=== PATIENT | male | born 1950 | race Caucasian/White ===

== ENCOUNTER 2024-06-19 12:42 | Inpatient (IN) | payer MEDICARE, OTHER, SELFPAY ==
[2024-06-19] VITALS (22 sets, daily range): BP systolic 99–134; BP diastolic 57–79; PULSE 61–90; RESP 15–28; TEMP 36.6–37; O2SAT 95–98; BMI 26.6
--- NOTE | 2024-06-19 13:02 | EKG_ITS ---
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
--- NOTE | 2024-06-19 13:02 | DI.RAD.S_ITS ---
PROCEDURE: XR CHEST 1V INDICATIONS: chest pain TECHNIQUE: One view of the chest was acquired. COMPARISON: None. FINDINGS: Surgical changes and devices: None. Lungs and pleura: Lungs are clear. No pleural effusions or pneumothorax. Mediastinum: Mediastinal contours appear normal. Heart size is normal. Bones and chest wall: No suspicious bony lesions. Overlying soft tissues appear unremarkable. IMPRESSION: No acute cardiopulmonary abnormality is seen. Dictated by: James Park M.D. on 06/19/2024 at 13:51 Approved by: James Park M.D. on 06/19/2024 at 13:51
[2024-06-19 13:31] LABS: Prothrombin Time 11.3 SECONDS (9.4-12.5)
[2024-06-19 13:32] LABS: Add Manual Diff / Slide Review NO; Basophils Absolute Auto 0 /uL (0-100); Basophils Percent Auto 0.5 % (0-2); Eosinophils Absolute Auto 0 /uL (0-450); Eosinophils Percent Auto 0.4 % (2-4); Hematocrit 38.9 % (41-53); Hemoglobin 13.1 g/dL (13.5-17.5); Lymphocytes Absolute Auto 600 /uL (1100-4500); Lymphocytes Percent Auto 6.8 % (25-40); Mean Corpuscular HGB Conc 33.7 % (30-36); Mean Corpuscular Hemoglobin 29.1 PG (26-34); Mean Corpuscular Volume 86.2 fL (80-100); Monocytes Absolute Auto 600 /uL (0-900); Monocytes Percent Auto 6.1 % (3-14); Neutrophils Absolute Auto 8100 /uL (1500-7000); Neutrophils Percent Auto 86.2 % (50-75); Platelet Count 216 X10^3/uL (150-400); Red Blood Cell Count 4.51 X10^6/uL (4.5-5.9); Red Cell Distribution Width 13.7 % (11.6-14.8); White Blood Cell Count 9.4 X10^3/uL (4.5-11.0)
[2024-06-19 13:33] LABS: PTT Partial Thromboplastin Tim 28 SECONDS (25.1-36.5)
[2024-06-19 13:37] LABS: Alanine Aminotransferase 32 IU/L (<50); Albumin 3.8 g/dL (3.5-5.0); Albumin Globulin Ratio 1.1 (1.0-2.8); Alkaline Phosphatase 77 U/L (38-126); Aspartate Aminotransferase 43 IU/L (17-59); BUN Creatinine Ratio 17.3 (6-22); Bilirubin Total 0.7 mg/dL (0.2-1.3); Blood Urea Nitrogen 17 mg/dL (9-20); Calcium 8.4 mg/dL (8.4-10.2); Carbon Dioxide 24 mmol/L (22-32); Chloride 107 mmol/L (98-107); Creatine Kinase 144 U/L (55-170); Estimated Glomerular Filt Rate > 60 mL/min (>60); Globulin 3.4 g/dL (1.7-4.1); Glucose 94 mg/dL (80-110); HEMOLYSIS < 15 (0-50); Lipase 145 U/L (23-300); Magnesium 1.8 mg/dL (1.6-2.3); Potassium 3.7 mmol/L (3.4-5.1); Sodium 138 mmol/L (137-145); Total Protein 7.2 g/dL (6.3-8.2)
[2024-06-19 13:48] LABS: NT-proBNP (BNP-Adult 18+) 551 pg/mL (<125)
--- NOTE | 2024-06-19 14:11 | ED.CHESTPAIN ---
HPI - Chest Pain General Chief Complaint: Chest Pain Stated Complaint: Severe shaking, ekg done, EMT recommended testing Time Seen by Provider: 06/19/24 14:11 Source: patient Mode of arrival: Ambulatory Limitations: no limitations History of Present Illness HPI narrative: 73-year-old male without any significant past medical history comes into the ED from home for evaluation of ?shaking. States that this started earlier today, states that he did call EMS they did an EKG and was told everything was fine but to come into the ED for further evaluation treatment. Patient states that at that time he was not having any specific chest pain but was complaining of some mild shortness of breath/dyspnea. He states that the symptoms completely resolved after a proximally 1 hour. At time of evaluation patient completely asymptomatic at this time. Not on any blood thinners no recent travel no known sick contacts. Review of Systems Review of Systems Narrative: General: Positive chills, Denies fever, weight loss HEENT: Denies headache, eye drainage, eye irritation, head trauma, sore throat, voice change Cardiovascular: Denies any chest pain, palpitations, shortness of breath, tachycardia Respiratory: Positive shortness of breath, denies cough, wheeze, stridor GI/: Denies any abdominal pain, nausea, vomiting, diarrhea, bright red blood per rectum, melanotic stools, urinary frequency, urinary retention, dysuria, hematuria MSK: Denies any joint pain, muscle pains, swelling Skin: Denies any rashes, lesions, discoloration Neuro: Denies any headache, lightheadedness, dizziness, fainting, weakness Psych: Denies SI/HI Patient History Social History Smoking Status: Never smoker Smoking Status: Never smoker Exam Initial Vital Signs Initial Vital Signs: Vital Signs Temperature 98.3 F 06/19/24 12:48 Pulse Rate 90 06/19/24 12:48 Respiratory Rate 16 06/19/24 12:48 Blood Pressure 108/70 06/19/24 12:48 Pulse Oximetry 98 06/19/24 12:48 Oxygen Delivery Method Room Air 06/19/24 12:48 Course Orders Ordered: ED Orders 06/19/24 13:02 XR chest 1V Stat EKG-12 Lead Stat 06/19/24 13:15 Complete Blood Count AUTO DIFF Stat Comprehensive Metabolic Panel Stat Lipase Stat Magnesium Stat NT-proBNP (BNP-Adult 18+) Stat PTT Partial Thromboplastin [place] Stat Prothrombin Time INR Stat Troponin & CK Cardiac Panel Stat 06/19/24 13:49 Covid-19 + FLU A/B + RSV - PCR Stat 06/19/24 15:15 Trop I [Troponin I] Stat Heparin Sodium/Dextrose (Heparin Drip) 25,000 unit in 500 mls @ 19.051 mls/hr IV CONT CRISPIN; Protocol Last Admin: 06/19/24 14:29 Dose: 12 units/kg/hr, 19.051 mls/hr Documented By: RYLEY Co-signed By: MPO Discontinued Medications Aspirin (Aspirin 81 Mg Chew Tab) 324 mg PO NOW ONE Stop: 06/19/24 13:03 Last Admin: 06/19/24 14:29 Dose: 324 mg Documented By: RYLEY Heparin Sodium (Porcine) (Heparin 5,000 Unit/Ml Vial) 5,000 unit 60 unit/kg (5000 unit) IV NOW ONE Stop: 06/19/24 14:24 Last Admin: 06/19/24 14:29 Dose: 5,000 unit Documented By: RYLEY Vital Signs Vital signs: Vital Signs - 8 hr 06/19/24 12:48 Temperature 98.3 F Pulse Rate 90 Respiratory Rate 16 Blood Pressure 108/70 Pulse Oximetry 98 Oxygen Delivery Method Room Air MDM - Chest Pain Differential Diagnosis Differential diagnosis: Likely other (ACS, pneumonia, electrolyte abnormality, COVID, flu) Lab Data 06/19/24 13:15 06/19/24 13:15 Labs: Lab Results 06/19/24 06/19/24 Range/Units 13:15 13:49 WBC 9.4 (4.5-11.0) X10^3/uL RBC 4.51 (4.5-5.9) X10^6/uL Hgb 13.1 L (13.5-17.5) g/dL Hct 38.9 L (41-53) % MCV 86.2 (80-100) fL MCH 29.1 (26-34) PG MCHC 33.7 (30-36) % RDW 13.7 (11.6-14.8) % Plt Count 216 (150-400) X10^3/uL Neut % (Auto) 86.2 H (50-75) % Lymph % (Auto) 6.8 L (25-40) % [place] % (Auto) 6.1 (3-14) % Eos % (Auto) 0.4 L (2-4) % Baso % (Auto) 0.5 (0-2) % Neut # (Auto) 8100 H (9271-2045) /uL Lymph # (Auto) 600 L (0305-8775) /uL [place] # (Auto) 600 (0-900) /uL Eos # (Auto) 0 (0-450) /uL Baso # (Auto) 0 (0-100) /uL PT 11.3 (9.4-12.5) SECONDS INR 1.0 (0.9-1.3) APTT 28 (25.1-36.5) SECONDS Sodium 138 (137-145) mmol/L Potassium 3.7 (3.4-5.1) mmol/L Chloride 107 (98-107) mmol/L Carbon Dioxide 24 (22-32) mmol/L BUN 17 (9-20) mg/dL Creatinine 0.98 (0.66-1.25) mg/dL Estimated GFR > 60 (>60) mL/min BUN/Creatinine Ratio 17.3 (6-22) Glucose 94 (80-110) mg/dL Calcium 8.4 (8.4-10.2) mg/dL Magnesium 1.8 (1.6-2.3) mg/dL Total Bilirubin 0.7 (0.2-1.3) mg/dL AST 43 (17-59) IU/L ALT 32 (<50) IU/L Alkaline Phosphatase 77 (38-126) U/L Total Creatine Kinase 144 (55-170) U/L Troponin I 0.080 H (0.01-0.034) ng/mL NT-Pro-B Natriuret Pep 551 H (<125) pg/mL Total Protein 7.2 (6.3-8.2) g/dL Albumin 3.8 (3.5-5.0) g/dL Globulin 3.4 (1.7-4.1) g/dL Albumin/Globulin Ratio 1.1 (1.0-2.8) Lipase 145 (23-300) U/L SARS-CoV-2 (PCR) Negative (Negative) Influenza A (RT-PCR) Flu a negative (NEGATIVE) Influenza B (RT-PCR) Flu b negative (NEGATIVE) RSV (PCR) Negative (Negative) Urine Dip Bedside Urine Glucose Negative Bedside Urine Bilirubin - Negative Bedside Urine Ketone - Negative Urine Specific Tower 1.020 Bedside Urine Occult Blood - Negative Bedside Urine pH 6.0 Bedside Urine Protein - Negative Bedside Urine Urobilinogen - Negative Bedside Urine Nitrite - Negative Bedside Urine Leukocytes - Negative Esterase Imaging Data Chest x-ray: Radiologist's Impression: [address] [address] XRay Report Signed Patient: Chester Escoto MR#: [id number] : 1950 Acct:[id number] Age/Sex: 73 / M Date of Service: 06/19/24 Loc: ED Accession Number: [id number] Procedure: XR chest 1V Ordering Provider: León Valdes D.O. PROCEDURE: XR CHEST 1V INDICATIONS: chest pain TECHNIQUE: One view of the chest was acquired. COMPARISON: None. FINDINGS: Surgical changes and devices: None. Lungs and pleura: Lungs are clear. No pleural effusions or pneumothorax. Mediastinum: Mediastinal contours appear normal. Heart size is normal. Bones and chest wall: No suspicious bony lesions. Overlying soft tissues appear unremarkable. IMPRESSION: No acute cardiopulmonary abnormality is seen. ECG Data Interpretation: EKG interpreted ED physician sinuses 78 beats per minute QTC 430 occasional PVC noted, left axis deviation, nonspecific ST changes, no STEMI MDM Narrative Medical decision making narrative: 73-year-old male with past medical history of hypothyroidism comes into the ED for ?shaking. States that this started at around 8:00 a.m., states that he was outside working and went inside started shaking uncontrollably for about 45 minutes, he states that during that time he was having some chest pressure and shortness of breath, states that it self resolved. States that he is feeling better completely normal at this time medics arrived did a EKG on him and told him he was ?clear but to be evaluated in the emergency department. Patient at evaluation completely asymptomatic not complaining of any chest pain shortness of breath. Chest x-ray did not show any acute cardiopulmonary abnormalities, however initial troponin 0.080, no other abnormalities in lab work or imaging to note for elevated troponin therefore aspirin and heparin ordered for NSTEMI. 1516: Discussed case with Dr. Metz (cardiology) agrees with admission here and IV heparinization given elevated troponin, no need for transfer for urgent or emergent catheterization or echocardiogram. 1524: The patient's management plan was discussed Dr. Portillo, who agrees to admit the patient to their service and assumes care of this patient at this time. Full admission orders will be placed by the primary team. Discharge Plan Departure Patient Disposition: Admitted As Inpatient Clinical Impression: Non-ST elevation [place] (NSTEMI) Admit Date/Time: 06/19/24 15:20
[2024-06-19] MEDS: ASPIRIN 81 MG CHEW TAB 324 MG PO (14:29)
[2024-06-19] MEDS: HEPARIN 5,000 UNIT/ML VIAL 5000 UNIT IV (14:29)
[2024-06-19] MEDS: HEPARIN DRIP 25,000 UNIT/500 ML IV.SOLN 19.051 UNIT IV (14:29)
[2024-06-19 14:34] LABS: Influenza A - CEPHEID Flu A NEGATIVE (NEGATIVE); Influenza B - CEPHEID Flu B NEGATIVE (NEGATIVE); Respiratory Syncytial Virus Negative (Negative)
[2024-06-19 14:35] LABS: COVID-19 CEPHEID 4-PLEX PCR Negative (Negative)
--- NOTE | 2024-06-19 15:52 | P.HP_ITS ---
History of Present Illness History of Present Illness Date Patient Seen: 06/19/24 Chief complaint: Sever shaking, ekg done, EMT recommended testing Narrative: The patient was a 73-year-old male who has no significant medical history. He presented to the ER because he was shaking. The patient called 911, and they did an EKG. The patient was seen in the ED where he was found to have improvement of all symptoms. He did have transient shortness a breath but denied any chest pain. His troponin was elevated. He was discussed with Cardiology at [facility], they recommended treating for NSTEMI and further evaluation including an echocardiogram. The patient was started on heparin drip and given a Plavix load as well as aspirin in the emergency department. He was no known history of CAD and no clear risk factors for CAD. In the emergency department, he was started on a heparin drip and given aspirin. He was then given a Plavix load. A short time later he developed acute swelling of both eyelids consistent with angioedema. He had no lip or tongue swelling. He was initially treated with famotidine, Benadryl, and Solu-Medrol. Due to persistence of symptoms and ultimately his heparin drip was stopped. His symptoms resolved. He was no chest pain. [facility] Social History Smoking Status: Never smoker Meds Home Medications and Allergies Allergies Allergy/AdvReac Type Severity Reaction Status Date / Time clopidogrel Allergy Severe Swelling Verified 06/19/24 18:02 of the Eye heparin Allergy Severe Swelling Verified 06/19/24 18:03 of the Eye Review of Systems Review of Systems Narrative: All else reviewed and otherwise unremarkable except as noted in the history and physical. Exam Vital Signs (past 8 hours): - 06/19/24 12:48 Temperature 98.3 F Pulse Rate 90 Respiratory Rate 16 Blood Pressure 108/70 Pulse Oximetry 98 Oxygen Delivery Method Room Air Oxygen Delivery Method Room Air Narrative Exam Narrative: NAD, alert and oriented, fluent speech, calm. Normocephalic skull, EOMI, anicteric sclera, symmetric pupils. Oropharynx unremarkable, no droop. Neck supple, midline trachea, no adenopathy. Lungs clear, normal rate and effort. Heart regular, no murmur gallop or rub. Abdomen is soft, non distended and non tender. Extremities are free of edema. Skin is free of rash or lesions. Joints are not swollen or deformed. Judgment appears to be normal. Objective ECG Impression: Sinus rhythm with occasional premature ventricular complexes Left axis deviation Minimal voltage criteria for LVH, may be normal variant ( R in aVL ) T wave abnormality, consider anterior ischemia Imaging Chest x-ray: Radiologist's impression: No acute cardiopulmonary abnormality is seen. Labs 06/19/24 13:15 06/19/24 13:15 Labs: Laboratory Results - last 24 hr 06/19/24 06/19/24 13:15 13:49 WBC 9.4 RBC 4.51 Hgb 13.1 L Hct 38.9 L MCV 86.2 MCH 29.1 MCHC 33.7 RDW 13.7 Plt Count 216 Neut % (Auto) 86.2 H Lymph % (Auto) 6.8 L [place] % (Auto) 6.1 Eos % (Auto) 0.4 L Baso % (Auto) 0.5 Neut # (Auto) 8100 H Lymph # (Auto) 600 L [place] # (Auto) 600 Eos # (Auto) 0 Baso # (Auto) 0 PT 11.3 INR 1.0 APTT 28 Sodium 138 Potassium 3.7 Chloride 107 Carbon Dioxide 24 BUN 17 Creatinine 0.98 Estimated GFR > 60 BUN/Creatinine Ratio 17.3 Glucose 94 Calcium 8.4 Magnesium 1.8 Total Bilirubin 0.7 AST 43 ALT 32 Alkaline Phosphatase 77 Total Creatine Kinase 144 Troponin I 0.080 H NT-Pro-B Natriuret Pep 551 H Total Protein 7.2 Albumin 3.8 Globulin 3.4 Albumin/Globulin Ratio 1.1 Lipase 145 SARS-CoV-2 (PCR) Negative Influenza A (RT-PCR) Flu a negative Influenza B (RT-PCR) Flu b negative RSV (PCR) Negative Assessment & Plan Assessment & Plan narrative: 1. Demand ischemia versus NSTEMI, present on admission and active. 2. Allergic reaction to either heparin drip or Plavix, new and improved. Plan: -ASA, metoprolol, and high dose statin. -trend troponins -echo to assess cardiac function and rule out wall motion abnormalities -monitor for recurrent allergic symptoms. -stop heparin and Plavix. Anticipate 2 midnights need for hospital services, supports inpatient status. Full resuscitation MICHELE is June 21. Time-Based Coding :: 35 min spent with patient and on the chart (including review of chart, obtaining history, exam, reviewing outside data, placing orders, documenting exam and treatment plan, and counseling patient) on 06/19. Quality MIPS - Admit I confirm the patient?s Advance Care Plan is present, Code status is documented, Surrogate decision maker is in patient?s record [If Yes, STOP here]: Yes MIPS - Meds 'Current medications' to include all prescriptions, [id number] products, herbals, cannabis/cannabidiol products, and vitamin/mineral/dietary (nutritional) supplements. I have utilized all available resources to obtain, update, or review the patient?s current medications. [If Yes, STOP here]: Yes
--- NOTE | 2024-06-19 15:56 | DI.ECHO.S_ITS ---
[facility] : : [address] : [facility] : : [place], : : [place] [address] : : Phone: [phone] Echocardiogram Report + + :Name: AMAURY GORDILLO Study Date: 06/20/2024 Height: 68 in : :[facility] ReadingLocation: Weight: 175 lb : : Gender: Male BSA: 1.9 m2 : :: 1950 Age: 73 yrs BP: 118/74 mmHg: :Reason For Study: NSTEMI : :Ordering Physician: ANEL, : :LC Cosme Performed By: Solomon Marie : :Referring: LC TAM : + + Interpretation Summary The left ventricle is normal in size. The ejection fraction is estimated to be 50-55%. There are no focal wall motion abnormalities. Diastolic parameters suggest a relaxation abnormality of the left ventricle, consistent with probable normal filling pressures. The right ventricle is normal in size and function. The right ventricular systolic pressure is estimated to be at least 21 mmHg based on an estimated right atrial pressure of 3 mm Hg. The left atrium is mildly dilated. There is mild aortic regurgitation. The aortic root is mildly dilated. The ascending aorta is mildly enlarged. Procedure: A two-dimensional transthoracic echocardiogram with color flow and Doppler was performed. The study quality was technically good. There is no prior echocardiogram noted for this patient. The patient was in normal sinus rhythm during the exam. Left Ventricle: The left ventricle is normal in size. There is normal left ventricular wall thickness. There is no ventricular septal defect visualized. The ejection fraction is estimated to be 50-55%. There are no focal wall motion abnormalities. Diastolic parameters suggest a relaxation abnormality of the left ventricle, consistent with probable normal filling pressures. Right Ventricle: The right ventricle is normal in size and function. Atria: The left atrium is mildly dilated. Right atrial size is normal. There is no Doppler evidence for an interatrial shunt. Mitral Valve: The mitral valve is normal in structure and function. There is no mitral regurgitation noted. Aortic Valve: The aortic valve is trileaflet. The aortic valve opens well. There is mild aortic regurgitation. Tricuspid Valve: The tricuspid valve leaflets are thin and pliable. There is trace tricuspid regurgitation. The right ventricular systolic pressure is estimated to be at least 21 mmHg based on an estimated right atrial pressure of 3 mm Hg. Pulmonic Valve: The pulmonic valve leaflets are thin and pliable; valve motion is normal. There is trace pulmonic regurgitation. Great Vessels: The aortic root is mildly dilated. The ascending aorta is mildly enlarged. The pulmonary artery is normal size. The IVC is dilated (diameter is greater than 2.1 cm) yet it collapses greater than 50% with a sniff. This suggests a right atrial pressure of 8 mm Hg. Pericardium/ Pleura There is no pericardial effusion. There is no pleural effusion. MMode/2D Measurements & Calculations LVIDd: 4.5 cm AoV Openin.2 cm LVIDs: 3.4 cm LVOT diam: 2.3 cm IVSd: 0.74 cm Ao root diam: 4.0 cm LVPWd: 0.98 cm asc Aorta Diam: 4.1 cm LV wen. diameter/BSA (cm/m^2): 2.3 Ao Arch Diam (Prox Trans): 2.4 cm LV sys. diameter/BSA (cm/m^2): 1.8 FS: 24.8 % EPSS: 0.63 cm LA A2 area: 18.0 cm2 RA long axis: 3.9 cm LA A4 area: 24.1 cm2 RA area: 10.2 cm2 LA length (vol): 5.7 cm RA vol: 22.9 ml LA vol: 64.4 ml RA : 11.9 ml/m2 LA vol index: 33.3 ml/m2 RVD1 (basal): 3.8 cm IVC diam: 2.3 cm RVD2 (mid): 2.8 cm TAPSE: 2.4 cm Doppler Measurements & Calculations Ao V2 max: 101.4 cm/sec LVOT Max Panda: 89.2 cm/sec Ao V2 mean: 69.9 cm/sec LV V1 max P.2 mmHg Ao V2 VTI: 21.0 cm LV V1 VTI: 22.0 cm Ao max P.1 mmHg Ao mean P.2 mmHg KEN(I,D): 4.4 cm2 MV E max panda: 59.2 cm/sec KEN(V,D): 3.7 cm2 MV A max panda: 73.7 cm/sec KEN indexed to BSA (cm^2/m^2): 2.3 MV E/A: 0.80 sev ratio: 1.0 Med Peak E' Panda: 6.1 cm/sec E/E' med: 9.7 Lat Peak E' Panda: 6.6 cm/sec E/E' lat: 9.0 E/e' average: 9.4 MV dec time: 0.22 sec TR max padna: 215.0 cm/sec TR max P.5 mmHg PA V2 max: 62.3 cm/sec SV(LVOT): 92.8 ml PA V2 mean: 37.8 cm/sec PA mean P.68 mmHg PA pr(Accel): 5.4 mmHg Reading Physician:09:52 AM
[2024-06-19 16:07] LABS: Troponin I 0.136 ng/mL (0.01-0.034)
[2024-06-19] MEDS: CLOPIDOGREL 75 MG TABLET 300 MG PO (16:20)
[2024-06-19] MEDS: diphenhydrAMINE 50 MG/ML VIAL 25 MG IV (16:54)
[2024-06-19] MEDS: methylPREDNISolone 125 MG/2 ML VIAL IV (17:10)
[2024-06-19] MEDS: FAMOTIDINE 20 MG/2 ML VIAL IV (17:10)
--- NOTE | 2024-06-19 17:37 | PC.NURSE ---
Pt c/o red itchy swollen watery eyes at 1650. ED physician at bedside, Benedryl given at 1652, followed by methylprednisone and famotidine. Pt's eye lids remain swollen and watery. at bedside. handyperson aware. ED physician aware, no new orders.
--- NOTE | 2024-06-19 17:48 | PC.NURSE ---
Heparin paused/stopped at 1742 per ED physician. Pt continues to show symptoms of allergic reaction, physician at bedside, charge weigher aware.
--- NOTE | 2024-06-19 18:19 | EKG_ITS ---
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
--- NOTE | 2024-06-19 18:25 | PC.NURSE ---
Repeat EKG performed.
[2024-06-19] MEDS: METOPROLOL IR 25 MG TABLET 12.5 MG PO (21:31)
[2024-06-19] MEDS: ATORVASTATIN 20 MG TABLET 80 MG PO (21:31)
[2024-06-19 22:15] LABS: Troponin I 0.086 ng/mL (0.01-0.034)
[2024-06-20 02:04] VITALS: BP 113/69; PULSE 69; RESP 19; TEMP 36.5; O2SAT 94
[2024-06-20 03:29] LABS: Troponin I 0.047 ng/mL (0.01-0.034)
[2024-06-20 05:15] LABS: Add Manual Diff / Slide Review NO; Basophils Absolute Auto 0 /uL (0-100); Basophils Percent Auto 0.1 % (0-2); Eosinophils Absolute Auto 0 /uL (0-450); Hematocrit 37.6 % (41-53); Hemoglobin 12.8 g/dL (13.5-17.5); Lymphocytes Absolute Auto 500 /uL (1100-4500); Lymphocytes Percent Auto 5.9 % (25-40); Mean Corpuscular Hemoglobin 29.3 PG (26-34); Mean Corpuscular Volume 86.2 fL (80-100); Monocytes Absolute Auto 200 /uL (0-900); Monocytes Percent Auto 2.1 % (3-14); Neutrophils Absolute Auto 7100 /uL (1500-7000); Neutrophils Percent Auto 91.9 % (50-75); Platelet Count 204 X10^3/uL (150-400); Red Blood Cell Count 4.36 X10^6/uL (4.5-5.9); Red Cell Distribution Width 13.6 % (11.6-14.8); White Blood Cell Count 7.7 X10^3/uL (4.5-11.0)
[2024-06-20 05:36] LABS: Blood Urea Nitrogen 18 mg/dL (9-20); Calcium 8.4 mg/dL (8.4-10.2); Carbon Dioxide 20 mmol/L (22-32); Chloride 108 mmol/L (98-107); Estimated Glomerular Filt Rate > 60 mL/min (>60); Glucose 146 mg/dL (80-110); HEMOLYSIS < 15 (0-50); Sodium 136 mmol/L (137-145)
[2024-06-20 06:00] VITALS: BP 118/74; PULSE 62; RESP 18; TEMP 37; O2SAT 96
--- NOTE | 2024-06-20 07:27 | P.PN_ITS ---
Subjective Subjective Interval history: Summary: Patient was admitted with an episode of shaking and found to have elevated troponin. He was no history of CAD or cardiac risk factors. He lives in [place]. He was given aspirin, and then a heparin drip and Plavix. He developed an allergic reaction which may have related to Plavix or heparin. Ultimately both of these were stopped and he was treated with steroids and antihistamines with improvement of symptoms. S: Exam Vital Signs (past 8 hours): - 06/20/24 02:04 06/20/24 06:00 Temperature 97.7 F 98.6 F Pulse Rate 69 62 Respiratory Rate 19 18 Blood Pressure 113/69 118/74 Pulse Oximetry 94 96 Oxygen Flow Rate 0 0 Oxygen Delivery Method Room Air Oxygen Flow Rate 0 Narrative Exam Narrative: NAD, alert and oriented. Fluent speech. Lungs are clear, normal rate and effort. Heart is regular, no murmur gallop or rub. Abdomen is soft, non distended. Extremities are free of edema. Objective ECG Impression: Sinus rhythm with occasional premature ventricular complexes Left axis deviation Minimal voltage criteria for LVH, may be normal variant ( R in aVL ) T wave abnormality, consider anterior ischemia Imaging Chest x-ray: Radiologist's impression: No acute cardiopulmonary abnormality is seen. Labs 06/20/24 03:59 06/20/24 03:59 Labs: Laboratory Results - last 24 hr 06/19/24 06/19/24 06/19/24 13:15 13:49 15:36 WBC 9.4 RBC 4.51 Hgb 13.1 L Hct 38.9 L MCV 86.2 MCH 29.1 MCHC 33.7 RDW 13.7 Plt Count 216 Neut % (Auto) 86.2 H Lymph % (Auto) 6.8 L [place] % (Auto) 6.1 Eos % (Auto) 0.4 L Baso % (Auto) 0.5 Neut # (Auto) 8100 H Lymph # (Auto) 600 L [place] # (Auto) 600 Eos # (Auto) 0 Baso # (Auto) 0 PT 11.3 INR 1.0 APTT 28 Sodium 138 Potassium 3.7 Chloride 107 Carbon Dioxide 24 BUN 17 Creatinine 0.98 Estimated GFR > 60 BUN/Creatinine Ratio 17.3 Glucose 94 Calcium 8.4 Magnesium 1.8 Total Bilirubin 0.7 AST 43 ALT 32 Alkaline Phosphatase 77 Total Creatine Kinase 144 Troponin I 0.080 H 0.136 H* NT-Pro-B Natriuret Pep 551 H Total Protein 7.2 Albumin 3.8 Globulin 3.4 Albumin/Globulin Ratio 1.1 Lipase 145 SARS-CoV-2 (PCR) Negative Influenza A (RT-PCR) Flu a negative Influenza B (RT-PCR) Flu b negative RSV (PCR) Negative 06/19/24 06/20/24 06/20/24 21:43 02:59 03:59 WBC 7.7 RBC 4.36 L Hgb 12.8 L Hct 37.6 L MCV 86.2 MCH 29.3 MCHC 34.0 RDW 13.6 Plt Count 204 Neut % (Auto) 91.9 H Lymph % (Auto) 5.9 L [place] % (Auto) 2.1 L Eos % (Auto) 0.0 L Baso % (Auto) 0.1 Neut # (Auto) 7100 H Lymph # (Auto) 500 L [place] # (Auto) 200 Eos # (Auto) 0 Baso # (Auto) 0 PT INR APTT Sodium 136 L Potassium 4.0 Chloride 108 H Carbon Dioxide 20 L BUN 18 Creatinine 0.82 Estimated GFR > 60 BUN/Creatinine Ratio 22.0 Glucose 146 H Calcium 8.4 Magnesium Total Bilirubin AST ALT Alkaline Phosphatase Total Creatine Kinase Troponin I 0.086 H 0.047 H NT-Pro-B Natriuret Pep Total Protein Albumin Globulin Albumin/Globulin Ratio Lipase SARS-CoV-2 (PCR) Influenza A (RT-PCR) Influenza B (RT-PCR) RSV (PCR) [facility] Social History household members: spouse Smoking Status: Never smoker alcohol intake: current Assessment & Plan Assessment & Plan narrative: 1. Demand ischemia versus NSTEMI, present on admission and active. 2. Allergic reaction to either heparin drip or Plavix, new and improved. Plan: -ASA, metoprolol, and high dose statin. -trend troponins -ECHO to assess cardiac function and rule out wall motion abnormalities -monitor for recurrent allergic symptoms. -stop heparin and Plavix. Anticipate 2 midnights need for hospital services, supports inpatient status. Full resuscitation MICHELE is June 21. Time-Based Coding :: [TOTAL MINUTES] spent with patient and on the chart (including review of chart, obtaining history, exam, reviewing outside data, placing orders, documenting exam and treatment plan, and counseling patient) on [DATE]. Quality VTE Deep Vein Thrombosis/Pulmonary Embolism Present on Admission: No
[2024-06-20 08:00] VITALS: BP 109/72; PULSE 66; RESP 21; TEMP 36.6; O2SAT 95
[2024-06-20] MEDS: METOPROLOL IR 25 MG TABLET 12.5 MG PO (08:08)
[2024-06-20] MEDS: ASPIRIN EC 81 MG TABLET PO (08:08)
--- NOTE | 2024-06-20 11:48 | PM.DS.1 ---
History of Present Illness History of Present Illness Chief complaint: Sever shaking, ekg done, EMT recommended testing Narrative: The patient was a 73-year-old male who has no significant medical history. He presented to the ER because he was shaking. The patient called 911, and they did an EKG. The patient was seen in the ED where he was found to have improvement of all symptoms. He did have transient shortness a breath but denied any chest pain. His troponin was elevated. He was discussed with Cardiology at [facility], they recommended treating for NSTEMI and further evaluation including an echocardiogram. The patient was started on heparin drip and given a Plavix load as well as aspirin in the emergency department. He was no known history of CAD and no clear risk factors for CAD. In the emergency department, he was started on a heparin drip and given aspirin. He was then given a Plavix load. A short time later he developed acute swelling of both eyelids consistent with angioedema. He had no lip or tongue swelling. He was initially treated with famotidine, Benadryl, and Solu-Medrol. Due to persistence of symptoms and ultimately his heparin drip was stopped. His symptoms resolved. He was no chest pain. Discharge Providers Provider Date of admission: 06/19/24 15:20 Discharge Date: 06/20/24 Consults: Telephone discussions with [facility] Cardiology in the ER in the day of discharge. Dr. Metz. Discharge provider: Javier Portillo MD Summary Hospital Course Discharge Diagnosis: 1. Demand ischemia versus NSTEMI, present on admission and improved. 2. Allergic reaction to either heparin drip or Plavix, new and improved. Hospital Course: The patient presented with a chief complaint of shaking from [place]. He had no chest pain or dyspnea. A troponin was elevated and he was discussed with Cardiology who recommended a heparin drip. The patient was given a Plavix load and heparin drip was started. Developed edema of both eyes consistent with an allergic reaction was treated with corticosteroids and antihistamines. The heparin was stopped. He was unclear which agent had caused the reaction. The patient was maintained on aspirin, metoprolol, and statin overnight. Troponins were trended and peaked in the evening and quickly diminished. On the day of discharge patient was feeling comfortable and was eager to return home. He was discussed briefly with Cardiology with a plan to use medical therapy including aspirin, metoprolol, and atorvastatin. Recommendations are for a relatively closely scheduled outpatient stress testing cardiology referral. The patient will discuss this with his PCP on [place] get that referral going. An echo was fairly normal on the day of discharge. There were no wall motion abnormalities noted. No evidence of stress cardiomyopathy. Status at Discharge Cognitive/behavioral status at discharge: oriented Functional status at discharge: independent ambulation Overall status at discharge: patient is back to baseline Time Spent with Patient Time spent: Greater than 30 minutes Exam Vital Signs (past 8 hours): - 06/20/24 06:00 06/20/24 08:00 Temperature 98.6 F 97.8 F Pulse Rate 62 66 Respiratory Rate 18 21 Blood Pressure 118/74 109/72 Pulse Oximetry 96 95 Oxygen Flow Rate 0 0 Oxygen Delivery Method Room Air Oxygen Flow Rate 0 Narrative Exam Narrative: NAD, alert and oriented. Fluent speech. Lungs are clear, normal rate and effort. Heart is regular, no murmur gallop or rub. Abdomen is soft, non distended. Extremities are free of edema. Objective ECG Impression: Sinus rhythm with occasional premature ventricular complexes Left axis deviation Minimal voltage criteria for LVH, may be normal variant ( R in aVL ) T wave abnormality, consider anterior ischemia Imaging Chest x-ray: Radiologist's impression: No acute cardiopulmonary abnormality is seen. Labs 06/20/24 03:59 06/20/24 03:59 Labs: Laboratory Results - last 24 hr 06/19/24 06/19/24 06/19/24 13:15 13:49 15:36 WBC 9.4 RBC 4.51 Hgb 13.1 L Hct 38.9 L MCV 86.2 MCH 29.1 MCHC 33.7 RDW 13.7 Plt Count 216 Neut % (Auto) 86.2 H Lymph % (Auto) 6.8 L [place] % (Auto) 6.1 Eos % (Auto) 0.4 L Baso % (Auto) 0.5 Neut # (Auto) 8100 H Lymph # (Auto) 600 L [place] # (Auto) 600 Eos # (Auto) 0 Baso # (Auto) 0 PT 11.3 INR 1.0 APTT 28 Sodium 138 Potassium 3.7 Chloride 107 Carbon Dioxide 24 BUN 17 Creatinine 0.98 Estimated GFR > 60 BUN/Creatinine Ratio 17.3 Glucose 94 Calcium 8.4 Magnesium 1.8 Total Bilirubin 0.7 AST 43 ALT 32 Alkaline Phosphatase 77 Total Creatine Kinase 144 Troponin I 0.080 H 0.136 H* NT-Pro-B Natriuret Pep 551 H Total Protein 7.2 Albumin 3.8 Globulin 3.4 Albumin/Globulin Ratio 1.1 Lipase 145 SARS-CoV-2 (PCR) Negative Influenza A (RT-PCR) Flu a negative Influenza B (RT-PCR) Flu b negative RSV (PCR) Negative 06/19/24 06/20/24 06/20/24 21:43 02:59 03:59 WBC 7.7 RBC 4.36 L Hgb 12.8 L Hct 37.6 L MCV 86.2 MCH 29.3 MCHC 34.0 RDW 13.6 Plt Count 204 Neut % (Auto) 91.9 H Lymph % (Auto) 5.9 L [place] % (Auto) 2.1 L Eos % (Auto) 0.0 L Baso % (Auto) 0.1 Neut # (Auto) 7100 H Lymph # (Auto) 500 L [place] # (Auto) 200 Eos # (Auto) 0 Baso # (Auto) 0 PT INR APTT Sodium 136 L Potassium 4.0 Chloride 108 H Carbon Dioxide 20 L BUN 18 Creatinine 0.82 Estimated GFR > 60 BUN/Creatinine Ratio 22.0 Glucose 146 H Calcium 8.4 Magnesium Total Bilirubin AST ALT Alkaline Phosphatase Total Creatine Kinase Troponin I 0.086 H 0.047 H NT-Pro-B Natriuret Pep Total Protein Albumin Globulin Albumin/Globulin Ratio Lipase SARS-CoV-2 (PCR) Influenza A (RT-PCR) Influenza B (RT-PCR) RSV (PCR) PFS Social History household members: spouse Smoking Status: Never smoker alcohol intake: current Discharge Assessment & Plan Assessment and Plan Assessment: 1. Demand ischemia versus NSTEMI, present on admission and improved. 2. Allergic reaction to either heparin drip or Plavix, new and improved. Plan of Treatment: Discharge home on medical therapy, close follow up with PCP and referral to Cardiology for a stress test within the next couple of weeks and cardiology referral. He was advised to call 911 for severe chest pain or dyspnea in the meantime. Discharge Plan Discharge Plan Patient Disposition: Home Provider Discharge Comment: Stable for discharge home on a basic cardiac regimen with close follow up and outpatient stress test. Discharge orders & Medications Prescriptions: New aspirin 81 mg Tablet,Delayed Release (Dr/Ec) 81 mg PO DAILY Qty: 30 2RF atorvastatin 20 mg Tablet 80 mg PO BEDTIME Qty: 30 1RF metoprolol tartrate 25 mg Tablet 12.5 mg PO BID Qty: 60 1RF Continued levothyroxine 150 mcg tablet 150 mcg PO DAILY Discharge Health Status Multidrug resistant organism: No MDRO Diet/Activity/Treatments Diet: Low-fat Diet comment: Low fat. Activity: as tolerated. Visit Report/Discharge Packet Instructions: DI for Chest Pain Stand Alone Forms: Patient Portal/API Quality VTE Deep Vein Thrombosis/Pulmonary Embolism Present on Admission: No MIPS - DC The patient has a history of heart transplant or Left Ventricular Assist Device (LVAD). If yes, STOP here.: No The patient has current or prior documentation of left ventricular ejection fraction (LVEF) less than or equal to 40%, or moderate or severely depressed left ventricular systolic function.: No
[2024-06-20 12:00] VITALS: BP 111/70; PULSE 68; RESP 15; TEMP 36.6; O2SAT 98
== END 2024-06-20 13:18 | disposition home or self-care (01) | DRG 282 ==
LOC: ED 15:20 → AC 15:21
PROVIDERS: Internal Medicine; Admitting Provider Hospitalist; Emergency Provider Student in an Organized Health Care Education/Training Program; Family Provider Family Medicine; Referring Provider Student in an Organized Health Care Education/Training Program; Visit Provider Hospitalist
DX: I21.4 Non-ST elevation (NSTEMI) myocardial infarction (principal); I24.89 Other forms of acute ischemic heart disease; T78.3XXA Angioneurotic edema, initial encounter; T45.515A Adverse effect of anticoagulants, initial encounter; T45.525A Adverse effect of antithrombotic drugs, initial encounter; Z88.8 Allergy status to other drugs, medicaments and biological substances
CPT/HCPCS: 0241U; 36415; 71045; 80048; 80053; 81003; 82550; 83690; 83735; 83880; 84484; 85025; 85610; 85730; 93005; 93306; 96365; 96366; 96375; 99284; 99285; J1200; J1644; J2919